=== PATIENT | female | born 2000 | race African-American/Black ===

== ENCOUNTER 2021-05-16 11:10 | Emergency (ER) | payer SELFPAY ==
[2021-05-16] MEDS ORDERED: Sodium Chloride 0.9% 1,000 ML ONE (11:58)
[2021-05-16] MEDS ORDERED: Ondansetron PF 4 MG/2 ML Vial ONE (11:58)
[2021-05-16] MEDS ORDERED: Acetaminophen 500 MG TAB ONE (11:58)
[2021-05-16 11:59] LABS: #Basophils 0.1 thou/uL (0.0-0.2); #Lymphocytes 1.6 thou/uL (1.20-3.40); #Monocytes 0.6 thou/uL (0.11-0.59); #Neutrophils 4.7 thou/uL (1.40-6.50); %Basophils 0.8 % (0.0-1.0); %Eosinophils 0.6 % (0.0-10.0); %Lymphocytes 23.4 % (21.0-51.0); %Monocytes 8.4 % (0.0-10.0); %Neutrophils 66.8 % (42.0-75.0); Hemoglobin 13.5 g/dL (12.0-16.0); Mean Corpuscular HGB CONC 31.3 g/dL (32.0-36.0); Mean Corpuscular Hemoglobin 28.4 pg (27.0-31.0); Mean Corpuscular Volume 90.7 fL (78.0-98.0); Mean Platelet Volume 8.9 fL (7.4-10.4); Platelet Count 314 thou/uL (130-400); RBC Distribution Width 12.2 % (11.5-14.5); Red Blood Cell (RBC) Count 4.76 mill/uL (4.20-5.40)
[2021-05-16 12:13] LABS: ALT (SGPT) 12 U/L (8-55); AST (SGOT) 13 U/L (5-34); Alkaline Phosphatase 41 U/L (40-110); Anion Gap 12 mmol/L (10-20); BUN (Urea Nitrogen) 9 mg/dL (7.0-18.7); Bilirubin, Total 0.2 mg/dL (0.2-1.2); Calc. Creatinine Clearance 0 mL/min (70-130); Calcium 9.4 mg/dL (7.8-10.44); Carbon Dioxide 25 mmol/L (22-29); Chloride 104 mmol/L (98-107); Globulin 3.6 g/dL (2.4-3.5); Glucose 87 mg/dL (70-105); Protein, Total 7.6 g/dL (6.0-8.3); Sodium 137 mmol/L (136-145)
[2021-05-16 12:20] LABS: BHCG - Serum Negative (NEGATIVE); Pregs Control Bar Appear? YES (CONTROL BAR)
[2021-05-16] MEDS ORDERED: Dexamethasone 20 MG/5 ML VIAL ONE (12:27)
[2021-05-16] MEDS ORDERED: Ketorolac Tromethamine 30 MG/ML VIAL ONE (12:27)
[2021-05-16 12:30] LABS: Bilirubin Negative (Negative); Blood, Urine Negative (Negative); Clarity Clear (Clear); Glucose, Urine (Dipstick) Negative (Negative); Ketone, Urine Negative (Negative); Leukocyte Negative (Negative); Nitrite Negative (Negative); Protein, Urine (Dipstick) Negative (Neg-Trace); Specific Gravity, Urine 1.025 (1.005-1.030); Urobilinogen 0.2 mg/dL (Less than 2)
== END 2021-05-16 13:25 | disposition home or self-care (01) ==
LOC: NAV ERS 11:10
DX: R07.89 Other chest pain (principal); R51.9 Headache, unspecified; R42 Dizziness and giddiness; J45.909 Unspecified asthma, uncomplicated
CPT/HCPCS: 70450; 71045; 80053; 81003; 84484; 84703; 85025; 85379; 93005; 96374; 96375; J1100; J1885; J2405; J7050

== ENCOUNTER 2021-06-18 15:11 | Emergency (ER) | payer SELFPAY ==
[2021-06-18] MEDS ORDERED: Sodium Chloride 0.9% 1,000 ML ONE (15:36)
[2021-06-18] MEDS ORDERED: Ondansetron PF 4 MG/2 ML Vial ONE (15:38)
[2021-06-18] MEDS ORDERED: Ketorolac Tromethamine 30 MG/ML VIAL ONE (15:38)
[2021-06-18] MEDS ORDERED: diphenhydrAMINE 50 MG/ML VIAL ONE (15:38)
[2021-06-18] MEDS ORDERED: Acetaminophen 500 MG TAB ONE (15:38)
[2021-06-18] MEDS ORDERED: Metoclopramide HCl 10 MG/2 ML VIAL ONE (15:53)
[2021-06-18] MEDS ORDERED: Morphine 4 MG/ML VIAL ONE (16:47)
[2021-06-18] MEDS ORDERED: KETAMINE 100 MG/ML (5ML VIAL) ONE (16:48)
== END 2021-06-18 18:22 | disposition home or self-care (01) ==
LOC: NAV ERS 15:11
DX: G43.909 Migraine, unspecified, not intractable, without status migrainosus (principal); J45.909 Unspecified asthma, uncomplicated; Z79.899 Other long term (current) drug therapy
CPT/HCPCS: 96365; 96375; J1200; J1885; J2270; J2405; J2765; J7050